=== PATIENT | male | born 1960 | race Caucasian/White ===

== ENCOUNTER → 2023-12-05 08:24 | Outpatient (REF) | payer BC, SELFPAY | LOC: HWRAD 08:24 | PROVIDERS: ATTENDING PHYSICIAN Family Medicine | DX: R16.0 Hepatomegaly, not elsewhere classified (principal) | CPT/HCPCS: 76700 ==

== ENCOUNTER → 2023-12-14 06:13 | Day surgery (SDC) | payer BC, SELFPAY | LOC: GI 06:13 | PROVIDERS: ATTENDING PHYSICIAN Internal Medicine | DX: R19.4 Change in bowel habit (principal); K57.30 Diverticulosis of large intestine without perforation or abscess without bleeding; K63.5 Polyp of colon | CPT/HCPCS: 45380; 88305 ==

== ENCOUNTER 2023-12-15 10:17 | Emergency (ER) | payer BC, SELFPAY ==
[2023-12-15 10:21] VITALS: BP 125/83
--- NOTE | 2023-12-15 10:37 | ED.GENMED ---
History of Present Illness
General
Chief Complaint: Abdominal Symptoms
Source: patient
Time Seen by Provider: 12/15/23 10:22
History of Present Illness
History of Present Illness:
63yoM with a history of hypertension, hyperlipidemia, and diverticulosis presenting for evaluation of abdominal pain. Patient underwent a colonoscopy yesterday morning. The only abnormality on the colonoscopy was a 3mm polyp in the sigmoid colon
which was removed. He was feeling well after the procedure and went out for breakfast. He had eggs and potatoes. About 30 minutes later, he started to experiencing abdominal cramping and had an episode of diarrhea. He reports persistent pain in the
left side of his abdomen since then. He had an immediate worsening of his pain this morning after drinking water. He called the gastroenterology office and he was advised to go to the ED for evaluation. Patient has had several colonoscopies in the
past but has never had these symptoms before. He has not had any further bowel movements. He denies any fevers, vomiting, chest pain, shortness of breath. Previous abdominal surgeries include an inguinal hernia repair.
Past History
Past History
ED Past Medical History: HTN, Hypercholesterolemia and Other (colon Polyps)
ED Past Surgical History: Orthopedic and Other (Hernia repair bilateral)
Social History
Tobacco: Non-smoker
Alcohol: None
Drug: None
Personal:
Living: with family
Employment: Employed
Family History
Family History: Other (Noncontributory)
Phy Exam
Physical Exam
Physical Exam:
Appears uncomfortable, non-toxic
General Physical Exam
General age: appears stated age
General Skin: warm and dry
General Habitus: normal
General Mental: alert
Cardiovascular Exam
Cardiovascular Exam: regular rate/rhythm and no murmur
Pulmonary Exam
Pulmonary Exam: lungs clear, no respiratory distress, no crackles and no wheezing
Gastrointestinal Exam
Gastrointestinal Exam: soft, non distended and tender (+Tenderness throughout abdomen, worse in the LUQ/LLQ. No obvious distention noted. No guarding or rebound. )
[place] Coma Scale
Eye Opening: Spontaneous
Verbal Response: Oriented
Motor Response: Obeys Commands
GCS Total Score: 15
Skin Exam
Skin Exam: normal color and warm/dry
Psychiatric Exam
Psychiatric Exam: normal mood/affect
Course
Orders/Labs/Results
Orders:
Orders
12/15/23 10:36
0.9% Sodium Chloride 1000 ml [Nss] 1,000 ml IV BOLUS
CR Obstruct Series W/pa Chest Urgent
Comment:
Reason For Exam: Abd pain s/p colonoscopy
12/15/23 11:03
Complete Blood Count/With Diff Urgent
Comprehensive Metabolic Panel Urgent
Lipase Urgent
12/15/23 11:41
CT Abd/pel W Iv And Oral Contr Urgent
Comment:
Reason For Exam: abdominal pain, s/p colonoscopy
Iohexol [Omnipaque] See Protocol PO NOW STA
12/15/23 15:56
Hyoscyamine Sulfate [Levsin] 0.125 mg PO NOW STA
Abnormal Lab Results
12/15/23
11:03
RBC 4.62 L 10^6/uL
(4.70-6.10)
MCH 31.8 H pg
(27.0-31.0)
MPV 10.6 H fL
(7.4-10.4)
Absolute Lymphs (auto) 0.8 L 10^3/uL
(1.2-3.4)
Neutrophils % 80.9 H %
(42.2-75.2)
Lymphocytes % 10.5 L %
(20.5-51.1)
Glucose 100 H mg/dl
(70-99)
Total Bilirubin 1.4 H mg/dl
(0.2-1.3)
12/15/23 11:03
12/15/23 11:03
Vital Signs
Initial and Last Documented VS:
Initial Vital Signs
Temp Pulse Resp BP Pulse Ox
98.4 F 89 16 125/83 98
12/15/23 10:21 12/15/23 10:21 12/15/23 10:21 12/15/23 10:21 12/15/23 10:21
Last Documented Vital Signs
Temp Pulse Resp BP Pulse Ox
98.4 F 71 18 133/80 98
12/15/23 10:21 12/15/23 15:13 12/15/23 12:31 12/15/23 15:13 12/15/23 15:13
MDM/Problems Addressed
Differential Diagnosis Includes:
63yoM here with L sided abdominal pain after a colonoscopy yesterday. He is afebrile and hemodynamically stable. He is well appearing in no distress. No signs of peritonitis on abdominal exam. Differential diagnosis includes but is not limited to:
intestinal spasms, colitis, diverticulitis, colonic perforation
Initial ED plan: Check abdominal labs and obstruction series x-rays. If x-rays are negative, will proceed with CT with IV/PO contrast.
*Critical Care Note
Total Time (30-74mins, 75-104mins- exclusive of procedures): Not Applicable
Update Note
Update Note:
Labs unremarkable including normal white count and renal function. No evidence of perforation seen on CT scan. There is mild to moderate thickening and inflammation of descending colon, likely nonspecific colitis. Patient was evaluated by
marriage and family social worker, Dr. Ruth, at bedside. GI recommending discharge with prescription for Levsin. Recommendations discussed with patient. ED return precautions discussed. He was discharged in stable condition.
ED Attending Note
-
Portions of this chart may have been created with voice recognition software.� Occasional wrong word or��sound alike� substitutions may have occurred due to the inherent limitations of voice recognition software.
Discharge Plan
Departure
Patient Disposition: Home (Routine Discharge)
Date of Disposition: 12/15/23
Time of Disposition: 15:54
Patient with high blood pressure during this ER visit?: No
Discharge Problem:
Left sided abdominal pain
Instructions: Abdominal Pain
Prescriptions:
No Action
lisinopril 10 MG tablet
20 mg PO QPM
pravastatin 10 MG tablet
10 mg PO .4XWEEKLY
Patient Comments:
takes 4 times a week on Monday, Monday, Monday and Monday.
cholecalciferol (vitamin D3) [Vitamin D3] 1,000 UNIT capsule
1,000 unit PO DAILY
pantoprazole 40 MG tablet,delayed release (DR/EC)
40 mg PO DAILY Qty: 30 0RF
rifaximin [Xifaxan] 550 MG tablet
550 mg PO TID
sod sulf-pot chloride-mag sulf [Sutab] 1.479 GM tablet
1.479 gm PO ONCE
dicyclomine 10 mg capsule
10 mg PO BID PRN (Reason: abdominal pain) Qty: 15 0RF
Referrals:
Kiko Ruth MD [Active] -
Luis Riggins MD [Family Provider] -
Activity Restrictions/Additional Instructions:
Take hyoscyamine as needed for cramping. Apply heating pad to affected area.
Please follow-up with your marriage and family social worker. Return to the ER with any worsening symptoms, severe pain, fevers.
Interventions
Interventions:
*Risk Screen - Suicide Last Done: 12/15/23 14:14
*General Assessment Last Done: 12/15/23 14:14
*Neglect/Abuse Screening Last Done: 12/15/23 15:54
ED- Fall Risk Assessment Last Done: 12/15/23 14:14
*ED COVID-19 Vaccine History Last Done: 12/15/23 14:14
*Nursing Disposition Last Done: 12/15/23 16:15
EA-Mmlghe-Yzrwiwavrk Assessment Last Done: 12/15/23 14:14
Discharge Date and Time
Discharge Date/Time: 12/15/23 16:15
Print Language: HEBREW
[2023-12-15] MEDS: NSS 1000 IV (11:04)
[2023-12-15 11:22] LABS: % Basophils 0.1 % (0-2); % Eosinophils 0.6 % (0-6); % Immature Granulocytes 0.2 % (0-0.5); % Lymphocytes 10.5 % (20.5-51.1); % Monocytes 7.7 % (1.7-9.3); % Neutrophils 80.9 % (42.2-75.2); Absolute Eosinophils 0.1 10^3/uL (0-0.7); Absolute Lymphocytes 0.8 10^3/uL (1.2-3.4); Absolute Monocytes 0.6 10^3/uL (0.1-0.6); Absolute Neutrophils 6.5 10^3/uL (1.4-6.5); Hematocrit 41.8 % (39.0-52.0); Hemoglobin 14.7 g/dL (13.0-18.0); Mean Corp Hgb Conc. 35.2 g/dL (33.0-37.0); Mean Corpuscular Hgb 31.8 pg (27.0-31.0); Mean Corpuscular Volume 90.5 fL (80.0-94.0); Mean Platelet Volume 10.6 fL (7.4-10.4); Nucleated Red Blood Cells % 0 % (-); Platelet Count 146 10^3/uL (130-400); Red Blood Cell Count 4.62 10^6/uL (4.70-6.10); Red Cell Dist. Width 12.9 % (11.5-14.5)
[2023-12-15 11:35] LABS: ALT (SGPT) 40 U/L (0-50); AST (SGOT) 31 U/L (17-59); Albumin 4.2 g/dl (3.5-5.0); Alkaline Phosphatase 47 U/L (38-126); Blood Urea Nitrogen 13 mg/dl (9-20); Calcium 9.1 mg/dl (8.4-10.2); Carbon Dioxide 28 mmol/L (22-30); Chloride 104 mmol/L (98-107); Glucose 100 mg/dl (70-99); Lipase 118 U/L (23-300); Potassium 4.3 mmol/L (3.5-5.1); Sodium 141 mmol/L (135-145); Total Bilirubin 1.4 mg/dl (0.2-1.3); Total Protein 6.5 g/dl (6.3-8.2); eGFR > 60.00
[2023-12-15] MEDS: OMNIPAQUE 50 ML PO (11:45)
[2023-12-15 12:24] VITALS: BP 127/77
[2023-12-15 12:31] VITALS: BP 127/77
[2023-12-15 13:00] VITALS: BP 130/67
[2023-12-15 15:13] VITALS: BP 133/80
[2023-12-15] MEDS: LEVSIN 0.125 MG PO (16:07)
== END 2023-12-15 16:15 | disposition home or self-care (01) ==
LOC: EMR 10:17
PROVIDERS: Physician Assistant; EMERGENCY PHYSICIAN Emergency Medicine; FAMILY PHYSICIAN Family Medicine
DX: R10.9 Unspecified abdominal pain (principal); I10 Essential (primary) hypertension; E78.00 Pure hypercholesterolemia, unspecified
CPT/HCPCS: 99285; 96360; 74022; 74177; 80053; 83690; 85025; Q9967

== ENCOUNTER 2024-07-27 14:05 | Emergency (ER) | payer BC, SELFPAY ==
[2024-07-27 14:08] VITALS: BP 131/80
[2024-07-27 14:32] LABS: % Eosinophils 0.9 % (0-6); % Immature Granulocytes 0.2 % (0-0.5); % Lymphocytes 14.4 % (20.5-51.1); % Monocytes 6.6 % (1.7-9.3); % Neutrophils 77.9 % (42.2-75.2); Absolute Eosinophils 0.1 10^3/uL (0-0.7); Absolute Lymphocytes 0.8 10^3/uL (1.2-3.4); Absolute Monocytes 0.4 10^3/uL (0.1-0.6); Absolute Neutrophils 4.5 10^3/uL (1.4-6.5); Hematocrit 44.8 % (39.0-52.0); Hemoglobin 15.6 g/dL (13.0-18.0); Mean Corp Hgb Conc. 34.8 g/dL (33.0-37.0); Mean Corpuscular Volume 88.9 fL (80.0-94.0); Mean Platelet Volume 9.6 fL (7.4-10.4); Nucleated Red Blood Cells % 0 % (-); Platelet Count 186 10^3/uL (130-400); Red Blood Cell Count 5.04 10^6/uL (4.70-6.10); Red Cell Dist. Width 12.8 % (11.5-14.5); White Blood Cell Count 5.8 10^3/uL (4.8-10.8)
[2024-07-27 14:43] LABS: ALT (SGPT) 24 U/L (0-50); AST (SGOT) 23 U/L (17-59); Albumin 4.2 g/dl (3.5-5.0); Alkaline Phosphatase 59 U/L (38-126); Blood Urea Nitrogen 18 mg/dl (9-20); Calcium 9.4 mg/dl (8.4-10.2); Carbon Dioxide 31 mmol/L (22-30); Chloride 104 mmol/L (98-107); Glucose 104 mg/dl (70-99); Lipase 203 U/L (23-300); Potassium 4.2 mmol/L (3.5-5.1); Sodium 140 mmol/L (135-145); eGFR > 60.00
[2024-07-27 18:13] VITALS: BP 142/94
--- NOTE | 2024-07-27 18:31 | ED.GENMED ---
History of Present Illness
General
Chief Complaint: Abdominal Pain
Source: patient
Exam Limitations: none
Time Seen by Provider: 07/27/24 18:00
Nursing documentation reviewed up to this point in time: agreed with
History of Present Illness
History of Present Illness:
Patient is 63-year-old male with history of hypertension, hyperlipidemia presenting to the emergency department for evaluation of lower abdominal discomfort which has been worsening over the past week. Patient reports significant GI history for
which he follows with Dr. Ruth. He has been dealing with ongoing constipation, diarrhea, intermittent abdominal pains for a few months. However�he states over the past week symptoms have been more severe. He reports pain most notable in right
lower abdomen which radiates to right mid back and right groin. He denies any testicular pain or swelling. No fevers, chills, or vomiting. He does report very little appetite, eating and drinking very little and concerns of dehydration. Patient
denies any chest pain, shortness of breath, hematochezia.
He did contact the GI office who recommended evaluation in the emergency department. He did have a recent normal colonoscopy.
Patient has a history of diverticulitis and is concerned that he may be having an acute flare.
Past History
Past History
ED Past Medical History: HTN, Hypercholesterolemia and Other (colon Polyps)
ED Past Surgical History: Orthopedic and Other (Hernia repair bilateral)
Social History
Tobacco: Non-smoker
Alcohol: None
Drug: None
Personal:
Living: with family
Employment: Employed
Family History
Family History: Other (Noncontributory)
Review of Systems
Review of Systems
Allergies reviewed?: Yes
All Other Systems: ROS reviewed and negative except as documented in HPI and ROS
Phy Exam
Physical Exam
Physical Exam:
Vitals: Patient's vital signs are stable. Afebrile
General: Patient is well appearing, no acute distress. Nontoxic appearing
Skin: Warm and dry, no rashes or lesions
Head: Normocephalic, atraumatic
Eyes: Sclera nonicteric. EOMs intact. No nystagmus.
Throat: Protecting airway
Neck: Normal ROM, no cervical spine tenderness, no meningismus
Cardiac: Regular rate and rhythm, no murmurs.
Pulm: Normal respiratory effort, no wheezes, rales, rhonchi heard on exam.
Abdomen: Abdomen soft. Very mild abdominal tenderness in right lower quadrant. No rebound tenderness or guarding. No palpable mass or bulge.
Extremities: No evidence of cyanosis or edema. Palpable DP pulses bilaterally
Neuro: AAOx3. Grossly intact.
Psychiatric: Normal affect.
Course
Orders/Labs/Results
Orders:
Orders
07/27/24 14:16
Complete Blood Count/With Diff Urgent
Comprehensive Metabolic Panel Urgent
Lipase Urgent
07/27/24 18:28
0.9% Sodium Chloride 1000 ml [Nss] 1,000 ml IV BOLUS
07/27/24 18:29
CT Abd/pelvis W Iv Cont Urgent
Comment:
Reason For Exam: RLQ pain
07/27/24 18:40
Urinalysis Reflex To Culture Urgent
Date Specimen was Collected: 07/27/24
Time Specimen was Collected: 18:32
Abnormal Lab Results
07/27/24 07/27/24
14:16 18:40
Absolute Lymphs (auto) 0.8 L 10^3/uL
(1.2-3.4)
Neutrophils % 77.9 H %
(42.2-75.2)
Lymphocytes % 14.4 L %
(20.5-51.1)
Carbon Dioxide 31 H mmol/L
(22-30)
Glucose 104 H mg/dl
(70-99)
Urine Ketones 3+ A
(Negative)
07/27/24 14:16
07/27/24 14:16
Vital Signs
Initial and Last Documented VS:
Initial Vital Signs
Temp Pulse Resp BP Pulse Ox
98.3 F 72 16 131/80 98
07/27/24 14:08 07/27/24 14:08 07/27/24 14:08 07/27/24 14:08 07/27/24 14:08
Last Documented Vital Signs
Temp Pulse Resp BP Pulse Ox
97.9 F 68 16 114/76 99
07/27/24 22:30 07/27/24 22:30 07/27/24 22:30 07/27/24 22:00 07/27/24 22:30
MDM/Problems Addressed
Differential Diagnosis Includes:
Not limited to: Constipation, diverticulitis, ureterolithiasis, abdominal hernia, muscle strain, etc.
MDM/Problems Addressed:
63 year old male w/ hx as documented presented with right lower abdominal pain for the past 2 months worsening over the past week. He reports intermittent diarrhea and constipation. Denies fever, urinary symptoms, or testicular pain/swelling. Vitals
stable and afebrile. Physical exam as above. Patient very well appearing, conversational and nontoxic. Non surgical abdomen w/ very minimal tenderness in right lower abdomen. No tenderness at McBurneys point. No palpable mass. Cardio/pulmonary
assessment unremarkable. Screening labs were sent in triage without clinically significant abnormalities. Overall very low suspicion for acute intraabdominal infection given patient is afebrile w/ no leukocytosis and benign abdominal exam. However -
after lengthy shared decision making w/ patient - will obtain CT abdomen/pelvis. Will check UA. Patient comfortable and declining analgesia at this time.
Update: CT without acute findings. UA does not appear infected. Workup in ED negative. No indication for antibiotics. Patient received 1L IVF in ED. Feel stable for discharge home with outpatient GI f/u. Return precautions discussed. Patient and
patients verbalized understanding and comfortable w/ plan.
Chronic conditions affecting care:
Diverticulosis, constipation
Acute Exacerbation and/or Progression of Chronic Illness:
N/A
*Radiology
Radiology exam reviewed: radiology read reviewed (Findings suggestive of possible enteritis-no other acute intra-abdominal pathology)
*Pulse Oximetry
Patient hypoxic: no
*EKG
Interpreted by ED Provider?: NA
*Route Manager Interpretation
Rate: Route Manager- N/A
*Critical Care Note
Total Time (30-74mins, 75-104mins- exclusive of procedures): Not Applicable
ED Attending Note
-
Portions of this chart may have been created with voice recognition software.� Occasional wrong word or��sound alike� substitutions may have occurred due to the inherent limitations of voice recognition software.
Discharge Plan
Departure
Patient Disposition: Home (Routine Discharge)
Date of Disposition: 07/27/24
Time of Disposition: 22:15
Patient with high blood pressure during this ER visit?: Yes
Condition: Good
Covid-19: Not Applicable
Discharge Problem:
Abdominal pain
Instructions: Constipation, Adult (DC), Abdominal Pain, BLOOD PRESSURE
Prescriptions:
No Action
lisinopril 10 MG tablet
20 mg PO QPM
pravastatin 10 MG tablet
10 mg PO .4XWEEKLY
Patient Comments:
takes 4 times a week on Monday, Monday, Monday and Monday.
cholecalciferol (vitamin D3) [Vitamin D3] 1,000 UNIT capsule
1,000 unit PO DAILY
pantoprazole 40 MG tablet,delayed release (DR/EC)
40 mg PO DAILY Qty: 30 0RF
rifaximin [Xifaxan] 550 MG tablet
550 mg PO TID
sod sulf-pot chloride-mag sulf [Sutab] 1.479 GM tablet
1.479 gm PO ONCE
dicyclomine 10 mg capsule
10 mg PO BID PRN (Reason: abdominal pain) Qty: 15 0RF
Referrals:
Kiko Ruht MD [Active] - Call in 1-3 days for appt
Micaela Goldman MD [Family Provider] -
Activity Restrictions/Additional Instructions:
Return to the emergency department with any high fevers, worsening/persistent abdominal pain, intractable nausea/vomiting, persistent lack of appetite, worsening of current symptoms, or any other concerns
- As discussed your lab work and CT imaging showed no acute abnormalities in the emergency department. You were given IV fluids.
- It is important stay well-hydrated. I recommend a bland diet over the next few days and slowly advance as tolerated. You can take MiraLAX to help with constipation.
- You should follow-up with your GI doctor and primary care for further evaluation/management to ensure that symptoms are improving.
Monitor your symptoms closely and return to the emergency department with any acute worsening/new symptoms or any other concern
Interventions
Interventions:
*Risk Screen - Suicide Last Done: 07/27/24 14:10
*General Assessment Last Done: 07/27/24 17:57
*Neglect/Abuse Screening Last Done: 07/27/24 14:10
*ED- Fall Risk Assessment Last Done: 07/27/24 17:57
*ED COVID-19 Vaccine History Last Done: 07/27/24 17:57
*Nursing Disposition Last Done: 07/27/24 22:30
TN-Bir[facility]-Kcxggsubcc Assessment Last Done: 07/27/24 17:57
Discharge Date and Time
Discharge Date/Time: 07/27/24 22:30
Print Language: GABONESE
[2024-07-27] MEDS: NSS 1000 IV (18:37)
[2024-07-27 18:53] LABS: Urine Albumin Negative (Neg - Trace); Urine Bilirubin Negative (Negative); Urine Character Clear (Clear); Urine Color Yellow; Urine Glucose Negative (Negative); Urine Ketone 3+ (Negative); Urine Leukocyte Negative (Negative); Urine Nitrite Negative (Negative); Urine Occult Blood Negative (Negative); Urine Specific Gravity 1.025 (<1.030); Urine Urobilinogen Negative (Neg - 1+)
[2024-07-27 19:00] VITALS: BP 128/80
[2024-07-27 19:57] VITALS: BMI 23.4
[2024-07-27 20:00] VITALS: BP 126/83
[2024-07-27 21:08] VITALS: BP 120/78
[2024-07-27 22:00] VITALS: BP 114/76
== END 2024-07-27 22:30 | disposition home or self-care (01) ==
LOC: EMR 14:05
PROVIDERS: Emergency Medicine; Physician Assistant; EMERGENCY PHYSICIAN Emergency Medicine; FAMILY PHYSICIAN Family Medicine
DX: R10.31 Right lower quadrant pain (principal); K57.30 Diverticulosis of large intestine without perforation or abscess without bleeding; E78.00 Pure hypercholesterolemia, unspecified; I10 Essential (primary) hypertension; Z86.0100 Personal history of colon polyps, unspecified
CPT/HCPCS: 96360; 99284; 74177; 80053; 81003; 83690; 85025; Q9967

== ENCOUNTER 2024-11-19 09:46 | Emergency (ER) | payer BC, SELFPAY ==
[2024-11-19 09:49] VITALS: BP 136/90
[2024-11-19 11:47] VITALS: BP 128/80
[2024-11-19 11:55] VITALS: BMI 25.5
[2024-11-19 12:00] VITALS: BP 127/79
--- NOTE | 2024-11-19 12:05 | ED.GENMED ---
History of Present Illness
General
Chief Complaint: Dizziness
Source: patient
Exam Limitations: none
Time Seen by Provider: 11/19/24 11:44
Nursing documentation reviewed up to this point in time: agreed with
History of Present Illness
History of Present Illness:
Patient is a 64-year-old male with past medical history of hypertension hypercholesteremia history of C. difficile, digestion issues diverticulitis presents to the ER for evaluation. Patient reports starting last he noticed a little
headache and has had intermittent pain in his left elbow neck and aches in his chest. He denies any associated shortness of breath with chest pain. He walks daily and does not get chest pain. Symptoms have been intermittent. He does have a
head teller, he does follow with Dr. Wilson for high blood pressure high cholesterol. He did however notice a area of redness to his right hand and was not sure if he was bitten by tick. He was seen by family doctor for this last week but was
not treated for Lyme. He has no cardiac history. He does not smoke. He has no associated shortness of breath with this chest pain. He currently is asymptomatic he denies any associated fever chills joint swelling or rash.
Past History
Past History
ED Past Medical History: HTN, Hypercholesterolemia and Other (colon Polyps)
ED Past Surgical History: Orthopedic and Other (Hernia repair bilateral)
Social History
Tobacco: Non-smoker
Alcohol: None
Drug: None
Personal:
Living: with family
Employment: Employed
Family History
Family History: Other (Noncontributory)
Phy Exam
General Physical Exam
General Presentation: well appearing
General age: appears stated age
General Skin: warm
General Habitus: normal
General Mental: alert
General Hydration: appears well hydrated
Cardiovascular Exam
Cardiovascular Exam: regular rate/rhythm, no murmur and normal peripheral pulses
Pulmonary Exam
Pulmonary Exam: lungs clear and no respiratory distress
Neurological Exam
Neurological Exam: alert and oriented x3
Musculoskeletal Exam
Musculoskeletal Exam: full ROM and other (Full range of motion to all extremities no obvious swelling or redness in joints)
Skin Exam
Skin Exam: normal color, warm/dry and other (No rash)
Psychiatric Exam
Psychiatric Exam: normal mood/affect
Course
Orders/Labs/Results
Orders:
Orders
11/19/24 09:50
EKG [Electrocardiogram (*1)] Urgent
Reason for Study: Vertigo / Dizzy
EKG- Treatment ONCE
11/19/24 12:01
CBC/With Diff [Complete Blood Count/With Diff] Urgent
CMP [Comprehensive Metabolic Panel] Urgent
Lyme Progressive Urgent
Comment: ADD ON
Troponin I Urgent
11/19/24 12:23
Add On- LAB Urgent
Tests Added?: lyme progressive
11/19/24 14:10
Doxycycline [Vibramycin] 100 mg PO NOW STA
Abnormal Lab Results
11/19/24
12:01
WBC 3.3 L 10^3/uL
(4.8-10.8)
MPV 10.5 H fL
(7.4-10.4)
Absolute Lymphs (auto) 1.0 L 10^3/uL
(1.2-3.4)
Monocytes % 9.6 H %
(1.7-9.3)
11/19/24 12:01
11/19/24 12:01
Vital Signs
Initial and Last Documented VS:
Initial Vital Signs
Temp Pulse Resp BP Pulse Ox
98.3 F 75 17 136/90 99
11/19/24 09:49 11/19/24 09:49 11/19/24 09:49 11/19/24 09:49 11/19/24 09:49
Last Documented Vital Signs
Temp Pulse Resp BP Pulse Ox
98.3 F 58 18 119/80 100
11/19/24 09:49 11/19/24 14:15 11/19/24 14:15 11/19/24 14:00 11/19/24 14:15
MDM/Problems Addressed
Differential Diagnosis Includes:
Not limited to tickborne illness, Lyme, less likely ACS
MDM/Problems Addressed:
Patient with possible recent tick and has had intermittent aches ,elbow pain ,chest aches. Will treat and cover for Lyme; Lyme testing ordered. Regarding chest pain patient has no cardiac history he does have history of high blood pressure high
cholesterol. Cardiac troponin negative no acute findings on EKG. He does follow-up with Dr. Wilson and has an appointment actually this Monday.
Will start with Doxy and give first dose here in the ED. d/c f/u with pcp
*Pulse Oximetry
SaO2: 99
Oxygen Mode of Delivery: Room air
Patient hypoxic: no
*EKG
Interpreted by ED Provider?: Yes
Interpretation: normal
Heart Rate: 77
Rate: normal
Rhythm: sinus
Ischemia: no ischemia (rbbb)
*Critical Care Note
Total Time (30-74mins, 75-104mins- exclusive of procedures): Not Applicable
ED Attending Note
-
Portions of this chart may have been created with voice recognition software.� Occasional wrong word or��sound alike� substitutions may have occurred due to the inherent limitations of voice recognition software.
Discharge Plan
Departure
Patient Disposition: Home (Routine Discharge)
Date of Disposition: 11/19/24
Time of Disposition: 14:11
Patient with high blood pressure during this ER visit?: Yes
Condition: Fair
Covid-19: Not Applicable
Discharge Problem:
Joint pain, Chest pain
Instructions: Chest Pain DCA Follow Up, BLOOD PRESSURE
Prescriptions:
New
doxycycline hyclate 100 mg capsule
100 mg PO BID Qty: 20 0RF
No Action
lisinopril 10 MG tablet
20 mg PO QPM
pravastatin 10 MG tablet
10 mg PO .4XWEEKLY
Patient Comments:
takes 4 times a week on Monday, Monday, Monday and Monday.
cholecalciferol (vitamin D3) [Vitamin D3] 1,000 UNIT capsule
1,000 unit PO DAILY
pantoprazole 40 MG tablet,delayed release (DR/EC)
40 mg PO DAILY Qty: 30 0RF
rifaximin [Xifaxan] 550 MG tablet
550 mg PO TID
sod sulf-pot chloride-mag sulf [Sutab] 1.479 GM tablet
1.479 gm PO ONCE
dicyclomine 10 mg capsule
10 mg PO BID PRN (Reason: abdominal pain) Qty: 15 0RF
Referrals:
Jonathan Wilson MD [Active, Cardiology]
Micaela Goldman MD [Family Provider, Family Practice]
Activity Restrictions/Additional Instructions:
As discussed Lyme testing was done here in the ER however you will be empirically started on antibiotics. Take twice a day for the next 10 days. This was sent to your pharymacy. Please follow-up with your family doctor for further evaluation of
her symptoms as well as Lyme results. In addition your cardiac workup was negative however these follow-up with your head teller as scheduled on Monday return if any worsening of symptoms.
Your white count was minimally low here in the ER please have this rechecked by your family doctor.
Interventions
Interventions:
*Risk Screen - Suicide Last Done: 11/19/24 09:51
*General Assessment Last Done: 11/19/24 09:51
*Neglect/Abuse Screening Last Done: 11/19/24 09:51
*ED COVID-19 Vaccine History Last Done: 11/19/24 09:51
*Nursing Disposition Last Done: 11/19/24 14:32
ED- Neurological Assessment Last Done: 11/19/24 11:55
ED- Cardiac Assessment Last Done: 11/19/24 11:55
ED Swallowing Screen Last Done: 11/19/24 11:55
Discharge Date and Time
Discharge Date/Time: 11/19/24 14:33
Print Language: NIGERIEN
[2024-11-19 12:10] LABS: Hematocrit 46.5 % (39.0-52.0); Hemoglobin 16.0 g/dL (13.0-18.0); Mean Corp Hgb Conc. 34.4 g/dL (33.0-37.0); Mean Corpuscular Volume 88.9 fL (80.0-94.0); Nucleated Red Blood Cells % 0 % (-); Platelet Count 166 10^3/uL (130-400); Red Cell Dist. Width 12.9 % (11.5-14.5)
[2024-11-19 12:26] LABS: ALT (SGPT) 23 U/L (0-50); AST (SGOT) 23 U/L (17-59); Albumin 4.6 g/dl (3.5-5.0); Alkaline Phosphatase 39 U/L (38-126); Blood Urea Nitrogen 13 mg/dl (9-20); Calcium 9.0 mg/dl (8.4-10.2); Carbon Dioxide 29 mmol/L (22-30); Chloride 104 mmol/L (98-107); Estimated Creatinine Clearance 70 ml/min; Glucose 93 mg/dl (70-99); Potassium 4.6 mmol/L (3.5-5.1); Sodium 138 mmol/L (135-145); Total Protein 7.3 g/dl (6.3-8.2); eGFR > 60.00
[2024-11-19 12:33] LABS: Troponin I < 0.012 ng/ml
[2024-11-19 13:00] VITALS: BP 126/78
[2024-11-19 14:00] VITALS: BP 119/80
[2024-11-19] MEDS: VIBRAMYCIN 100 MG PO (14:16)
== END 2024-11-19 14:33 | disposition home or self-care (01) ==
LOC: EMR 09:46
PROVIDERS: Nurse Practitioner; EMERGENCY PHYSICIAN Emergency Medicine; FAMILY PHYSICIAN Family Medicine
DX: R07.9 Chest pain, unspecified (principal); M25.522 Pain in left elbow; E78.00 Pure hypercholesterolemia, unspecified; I10 Essential (primary) hypertension
CPT/HCPCS: 99284; 80053; 84484; 85025; 86618; 93005

== ENCOUNTER → 2024-12-24 17:09 | Outpatient (REF) | payer BC, SELFPAY | LOC: RAD 17:09 | PROVIDERS: ATTENDING PHYSICIAN Family Medicine | DX: R10.9 Unspecified abdominal pain (principal) | CPT/HCPCS: 74018 ==

== ENCOUNTER → 2025-01-02 12:01 | Outpatient (REF) | payer BC, SELFPAY | LOC: RAD 12:01 | PROVIDERS: ATTENDING PHYSICIAN Internal Medicine; FAMILY PHYSICIAN Family Medicine | DX: R10.9 Unspecified abdominal pain (principal) | CPT/HCPCS: 74018 ==

== ENCOUNTER → 2025-01-15 13:11 | Outpatient (REF) | payer BC, SELFPAY | LOC: RAD 13:11 | PROVIDERS: ATTENDING PHYSICIAN Internal Medicine; FAMILY PHYSICIAN Family Medicine | DX: R10.9 Unspecified abdominal pain (principal); K57.90 Diverticulosis of intestine, part unspecified, without perforation or abscess without bleeding | CPT/HCPCS: 74177; Q9967 ==

== ENCOUNTER 2025-02-21 06:18 | Outpatient (RCR) | payer BC, SELFPAY | END 2025-02-21 23:59 | disposition home or self-care (01) | LOC: RPT 06:18 | PROVIDERS: ATTENDING PHYSICIAN Internal Medicine; FAMILY PHYSICIAN Family Medicine | DX: K59.02 Outlet dysfunction constipation (principal); M62.89 Other specified disorders of muscle; R10.20 Pelvic and perineal pain unspecified side; Z73.6 Limitation of activities due to disability | CPT/HCPCS: 97112; 97163; 97530 ==

== ENCOUNTER 2025-03-06 07:20 | Outpatient (RCR) | payer BC, SELFPAY | END 2025-03-06 23:59 | disposition home or self-care (01) | LOC: RPT 07:20 | PROVIDERS: ATTENDING PHYSICIAN Internal Medicine; FAMILY PHYSICIAN Family Medicine | DX: K59.02 Outlet dysfunction constipation (principal); M62.89 Other specified disorders of muscle; R10.20 Pelvic and perineal pain unspecified side; Z73.6 Limitation of activities due to disability | CPT/HCPCS: 97112; 97140; 97530 ==

== ENCOUNTER → 2025-04-04 08:15 | Outpatient (REF) | payer BC, SELFPAY ==
[2025-04-04 09:19] LABS: ALT (SGPT) 40 U/L (0-50); AST (SGOT) 29 U/L (17-59); Albumin 4.3 g/dl (3.5-5.0); Alkaline Phosphatase 43 U/L (38-126); Blood Urea Nitrogen 18 mg/dl (9-20); Calcium 9.0 mg/dl (8.4-10.2); Carbon Dioxide 28 mmol/L (22-30); Chloride 99 mmol/L (98-107); Glucose 101 mg/dl (70-99); HDL Cholesterol 60 mg/dl; LDL Cholesterol, Calculated 120 mg/dl; Potassium 4.7 mmol/L (3.5-5.1); Sodium 133 mmol/L (135-145); Total Protein 6.9 g/dl (6.3-8.2); Very Low Density Lipoprotein 18 mg/dl (0-30); eGFR > 60.00
[2025-04-04 09:37] LABS: Vitamin D, 25-OH*** 41.4 ng/mL (30-80)
== END ==
LOC: REG 08:15
PROVIDERS: ATTENDING PHYSICIAN Family Medicine
DX: E55.9 Vitamin D deficiency, unspecified (principal); E78.00 Pure hypercholesterolemia, unspecified
CPT/HCPCS: 36415; 80053; 80061; 82306

== ENCOUNTER 2025-04-23 10:11 | Outpatient (RCR) | payer BC, SELFPAY | END 2025-04-23 23:59 | disposition home or self-care (01) | LOC: RPT 10:11 | PROVIDERS: ATTENDING PHYSICIAN Internal Medicine; FAMILY PHYSICIAN Family Medicine | DX: K59.02 Outlet dysfunction constipation (principal); M62.89 Other specified disorders of muscle; R10.20 Pelvic and perineal pain unspecified side; Z73.6 Limitation of activities due to disability | CPT/HCPCS: 97140; 97530 ==

== ENCOUNTER → 2025-04-23 12:56 | Outpatient (REF) | payer BC, SELFPAY ==
[2025-04-23 15:31] LABS: Blood Urea Nitrogen 21 mg/dl (9-20); Calcium 8.9 mg/dl (8.4-10.2); Carbon Dioxide 27 mmol/L (22-30); Chloride 102 mmol/L (98-107); Glucose 80 mg/dl (70-99); Potassium 4.7 mmol/L (3.5-5.1); Sodium 134 mmol/L (135-145); eGFR > 60.00
== END ==
LOC: REG 12:56
PROVIDERS: ATTENDING PHYSICIAN Family Medicine
DX: E87.1 Hypo-osmolality and hyponatremia (principal)
CPT/HCPCS: 36415; 80048